=== PATIENT | male | born 1990 | race Caucasian/White ===

== ENCOUNTER 2024-11-01 16:54 | Emergency (ER) | payer MEDICAID ==
[~2024-11-01] VITALS: Ht 172.7 cm; Wt 68.0 kg
[2024-11-01 17:06] VITALS: O2SAT 99
[2024-11-01] MEDS ORDERED: BUPR1FIL SL (21:27)
[2024-11-01 22:22] VITALS: BP 143/85; PULSE 78; RESP 16; TEMP 37.1; O2SAT 100
[2024-11-01] MEDS: BUPRENORPHINE 8MG SL TABLET SL ONE (22:23)
== END 2024-11-01 22:41 | disposition home or self-care (01) ==
LOC: ER 16:54
DX: Z51.81 Encounter for therapeutic drug level monitoring (principal); Z76.0 Encounter for issue of repeat prescription
CPT/HCPCS: 99283; Z7610

== ENCOUNTER 2025-07-01 16:53 | Emergency (ER) | payer MEDICAID ==
[~2025-07-01] VITALS: Ht 172.7 cm; Wt 70.5 kg
[~2025-07-01 16:53] MED LIST: BUPR1FIL SL
[2025-07-01 16:58] VITALS: O2SAT 99
[2025-07-01] MEDS ORDERED: BUPR1FIL3 SL (17:16)
[2025-07-01] MEDS ORDERED: BUPR1FIL19 SL (17:27)
[2025-07-01 17:54] VITALS: BP 116/77; PULSE 65; RESP 18; TEMP 36.6; O2SAT 99
== END 2025-07-01 17:55 | disposition home or self-care (01) ==
LOC: ER 16:53
DX: Z00.00 Encounter for general adult medical examination without abnormal findings (principal); Z76.0 Encounter for issue of repeat prescription
CPT/HCPCS: 99282